=== PATIENT | female | born 1965 | race Caucasian/White ===

== ENCOUNTER 2017-04-08 08:31 | Inpatient (IN) | payer BC ==
[~2017-04-08 08:31] MED LIST: Buffered Lidocaine 0.9% SYRIN* 5 ML/SYR SYRINGE INTRADERM ONE; Dexamethasone IV* 4 MG/ML 1 ML (4 MG) IV SLOW PU ONE; Famotidine IV* 10 MG/ML 2 ML (20 mg) IV ONE; Scopolamine 1.5 mg* PATCH TRANSDERM ONE
[2017-04-08] MEDS ORDERED: Famotidine IV* 10 MG/ML 2 ML (20 mg) ONE ×2 (08:40→14:55)
[2017-04-08] MEDS ORDERED: Dexamethasone IV* 4 MG/ML 1 ML (4 MG) ONE (08:40)
[2017-04-08] MEDS ORDERED: Scopolamine 1.5 mg* PATCH ONE (08:41)
[2017-04-08] MEDS ORDERED: Ciprofloxacin 400MG IVPREMIX(* 400 MG/200 ML BAG ONE (08:41)
[2017-04-08] MEDS ORDERED: Buffered Lidocaine 0.9% SYRIN* 5 ML/SYR SYRINGE ONE (08:41)
[2017-04-08] MEDS ORDERED: Clindamycin 900 MG IVPREMIX(* 900 MG/50 ML SDV IV ONE (08:41)
[2017-04-08] MEDS ORDERED: Heparin VIAL(*) 5000 UNITS/ML VIAL (FIVE THOUSAND) ONE ×2 (08:42→14:55)
[2017-04-08] MEDS ORDERED: Bupivacaine 0.25% SDV* 30 ML ONE ×2 (09:35→10:48)
[2017-04-08] MEDS ORDERED: Midazolam* 1 MG/ML 5 ML VIAL (5 MG) ONE (09:46)
[2017-04-08] MEDS ORDERED: fentaNYL* 50 MCG/ML 2 ML VIAL (100 MCG VIAL) ONE ×2 (09:46→13:21)
[2017-04-08] MEDS ORDERED: Succinylcholine* 20 MG/ML 10 ML VIAL ONE (09:51)
[2017-04-08] MEDS ORDERED: Propofol* 10 MG/ML 20 ML BTL IV PUSH ONE (09:51)
[2017-04-08] MEDS ORDERED: Lidocaine 2% PF * 5 ML VIAL ONE (09:51)
[2017-04-08] MEDS ORDERED: Rocuronium* 10 MG/ML VIAL ONE (09:52)
[2017-04-08] MEDS ORDERED: PROCHLORPERAZINE INJ 5 MG/ML 2 ML VIAL IV PRN (09:55)
[2017-04-08] MEDS ORDERED: Morphine INJ* 2 MG/ML 1 ML CARPUJECT IV PRN (09:55)
[2017-04-08] MEDS ORDERED: Ketorolac INJ* 30 MG/ML 1 ML VIAL ONE ×2 (10:22→14:55)
[2017-04-08] MEDS ORDERED: Ondansetron INJ* 2 MG/ML VIAL ONE (10:50)
[2017-04-08] MEDS ORDERED: Phenylephrine IV* 40 MCG/ML 10 ML SYRINGE ONE (10:56)
[2017-04-08] MEDS ORDERED: Neostigmine Methylsulfate* 2 MG/2 ML SYRINGE ONE (11:53)
[2017-04-08] MEDS ORDERED: Glycopyrrolate IV* 0.2 MG/ML 1 ML VIAL ONE (11:53)
--- NOTE | 2017-04-08 12:06 | SURGPN ---
Brief Operative Note - Surgery Procedures: Procedures Pre-OP Diagnoses: Clinically severe obesity Post-op Diagnosis: same Procedure: Laparoscopic sleeve gastrectomy Surgeon: Maureen Asst: Freeman Weldon: VERA Hollingsworth EBL: minimal IVF: 2100cc LR Specimen: portion of stomach Drains: none
[2017-04-08] MEDS ORDERED: Acetaminophen ADULT LIQ* 650 MG/20.3 ML UDC PO PRN (12:07)
[2017-04-08] MEDS ORDERED: diPHENhydraMINE IV* 50 MG/ML 1 ml VIAL (BENADRYL) SLOW PUSH PRN (12:07)
[2017-04-08] MEDS ORDERED: HYDROcodone/ACET. 7.5/325 LIQ* 15 ML UDC PO PRN (12:07)
[2017-04-08] MEDS ORDERED: Ondansetron INJ* 2 MG/ML VIAL IV PRN (12:07)
[2017-04-08] MEDS ORDERED: Albuterol HFA INHALER* 8 gm MDI INH PRN (12:09)
--- NOTE | 2017-04-08 13:16 | OP ---
CC: Dr. Ronak Beckford; [facility] * DATE OF OPERATION: 04/08/2017 - ROOM #351 DATE OF : 1965. SURGEON: Dr. Ciro Reddy. RADIATION CONTROL WORKER: BETY Nazario. ANESTHESIOLOGIST: Dr. Khari Hollingsworth. ANESTHESIA: General. PRE-OP DIAGNOSIS: Clinically severe obesity, obstructive sleep apnea, hypertension. POST-OP DIAGNOSIS: Clinically severe obesity, obstructive sleep apnea, hypertension. OPERATIVE PROCEDURE: Laparoscopy sleeve gastrectomy. ESTIMATED BLOOD LOSS: Minimal. FLUIDS: 2100 cc of crystalloid fluid given. SPECIMEN: Portion of stomach. DRAINS: None. DESCRIPTION OF PROCEDURE: The patient was identified in the preoperative area. She was marked. We discussed the case again and she was aware. She met the anesthesiologist and was brought to the operating room and placed on the operating table in the supine position. Preoperative antibiotics were given. Sequential devices were placed on the bilateral lower extremities. General anesthesia was induced. The patient's abdomen was prepped and draped in the standard surgical fashion. A time-out was performed. A periumbilical incision was made. This was deepened down to the anterior fascia just left of midline and this fascia was elevated and a Veress needle was inserted into the abdominal cavity which was then allowed to insufflate to a pressure of 15 mmHg. The patient tolerated the insufflation well. Veress needle was removed and a 12 mm trocar was inserted to this site. The laparoscope was inserted through this and there was no evidence of injury from the trocar insertion. Additional trocar was then placed in the following position: Two 5 mm in the left upper quadrant. Review of the midline showed a small area of omentum attached to the anterior abdominal wall towards the umbilicus. This was taken down with a LigaSure device. This allowed us to see better into the right upper quadrant. A 12 mm trocar was inserted through this and the patient was placed in a steep reverse Trendelenburg. There were no significant adhesions at the previous open gallbladder site. Next, with the table in a steep reverse Trendelenburg, a Esau retractor was inserted through the subxiphoid incision and the liver was retracted anteriorly and to the right. This exposed the gastroesophageal fat pad which was retracted towards the right lower quadrant and blunt and sharp dissection was utilized to expose the left eulogio. It was unclear if there was some posterior fat extending into a hernia at this point. Next, we identified the pylorus and measured approximately 6 cm along the greater curvature. A retrogastric window was made into the lesser sac at this site and the vasculature to the greater curvature was taken with the LigaSure device right up to the angle of His. The fat pad was again gently dissected with both electrocautery and blunt dissection to free this more medially. Posterior attachments were similarly taken with the LigaSure device until the stomach could be completely rotated. I did not appreciate a significant hiatal hernia, but next we opened up the pars flaccida and identified the right eulogio. There was no dimpling at this site to suggest herniation. Next, our attention was turned towards the incisura. We upsized the 12 mm trocar at the right upper quadrant to a 15 to allow for a 60 mm black loaded JENNY stapler with reinforcement strips to be placed along the greater curvature and extending this towards the incisura. Prior to making this cut, we placed a 40 Hungarian bougie through the mouth and into the distal stomach. Staying close to the bougie, additional 60 mm purple JENNY stapling devices were fired until we did a full transsection of the stomach. Hemostasis was excellent. The Esau retractor was removed. The bougie was removed. The staple line lay flat without any twisting or corkscrewing. Again hemostasis was excellent. The stomach was placed in the endoscopic retrieval bag and brought out through the right upper quadrant port site with ease. This port site was reapproximated at the fascial layer with 0 Polysorb suture using an Endo Close device. The abdomen was allowed to collapse and all trocars were removed, including the Esau retractor. With the abdomen collapsed, the five skin incisions were reapproximated with skin everardo followed by sterile dressing. The patient tolerated the procedure well, was woken up in the OR, and transferred to the PACU in stable condition. [id number]/[facility] #: [id number] ELIZABETH
[2017-04-08] MEDS: fentaNYL* 50 MCG/ML 2 ML VIAL (100 MCG VIAL) IV PRN ×2 (13:22→13:59)
[2017-04-08] MEDS: Ketorolac INJ* 30 MG/ML 1 ML VIAL IV PRN ×2 (15:10→21:49)
[2017-04-08] MEDS: Heparin VIAL(*) 5000 UNITS/ML VIAL (FIVE THOUSAND) SUBCUT SCH ×2 (15:11→21:48)
[2017-04-08] MEDS: Famotidine IV* 10 MG/ML 2 ML (20 mg) IV SLOW PU SCH (15:11)
[2017-04-08] MEDS: HYDROmorphone* 1 MG/ML 1 ML CARPUJECT IV PRN (17:48)
[2017-04-08] MEDS: Mometasone/Formoter 200/5 MDI INH SCH (20:35)
[2017-04-09] MEDS: Famotidine IV* 10 MG/ML 2 ML (20 mg) IV SLOW PU SCH ×2 (03:47→15:39)
[2017-04-09] MEDS: Heparin VIAL(*) 5000 UNITS/ML VIAL (FIVE THOUSAND) SUBCUT SCH ×2 (06:00→13:37)
[2017-04-09] MEDS: Ketorolac INJ* 30 MG/ML 1 ML VIAL IV PRN (06:17)
[2017-04-09] MEDS: Mometasone/Formoter 200/5 MDI INH SCH (08:48)
[2017-04-09] MEDS ORDERED: Influenza VAC *QUAD* 2017-18* 0.5 ML SYRINGE IM ONE (09:00)
--- NOTE | 2017-04-09 09:18 | RAD ---
HISTORY: Status post sleeve gastrectomy COMPARISONS: October 29, 2016 TECHNIQUE: A single contrast fluoroscopic study was performed of the esophagus and upper GI tract. Water-soluble liquid contrast was administered under fluoroscopic observation. Multiple digital spot images were obtained Total fluoroscopy time is 0.8. FINDINGS: ESOPHAGUS: The esophagus is normal in contour, course, and caliber. There is no stricture or web. Contrast passes easily through the gastroesophageal junction into the stomach. There is presbyesophagus with tertiary nonpropulsive contractions. STOMACH: The patient is status post sleeve gastrectomy. Contrast passes easily through the gastric remnant into the duodenum. There is spontaneous gastroesophageal reflux. DUODENUM: The visualized duodenum is unremarkable. IMPRESSION: 1. STATUS POST SLEEVE GASTRECTOMY WITHOUT OBSTRUCTION OR EXTRAVASATION. 2. GASTROESOPHAGEAL REFLUX CPT II Codes: 6045F
--- NOTE | 2017-04-09 09:48 | PN ---
Progress Note - Progress Note Date of Service: 04/09/17 Note: S: POD #1. Doing well. No specific problems reported. Feels "bruised". No N/V or regurgitation. O: Vital Signs - 8 hr 04/09/17 04/09/17 04/09/17 02:00 03:24 04:00 Temperature 98.0 F Pulse Rate 94 Respiratory 16 16 16 Rate Blood Pressure 119/53 (mmHg) O2 Sat by Pulse 95 94 94 Oximetry 04/09/17 06:00 Temperature Pulse Rate Respiratory 16 Rate Blood Pressure (mmHg) O2 Sat by Pulse 96 Oximetry Intake and Output Last 24 Hours 04/07/17 04/08/17 04/09/17 04/10/17 06:59 06:59 06:59 06:59 Intake Total 4359 Output Total 3550 250 Balance 809 -250 Weight 245 lb Intake: IV Fluids 4359 CLINDAMYCIN 900MG 50 D5W 200ML, Cipro 400mg 200 LR 4001 PB - FAMOTIDINE 108 Oral 0 Output: Urine 3550 250 Other: Estimated Void Medium # Bowel Movements 0 Estimated Blood Loss MIN Comment Gen: appears comfortable Heart: reg Lungs: clear Abd: +BS, sl hypoactive; incisions ok; small amts of drainage on dsgs; soft; min tenderness to palp UGI: normal; small amt reflux A/P: s/p sleeve gastrectomy, doing well; start maggi clears; poss d/c home later today
[2017-04-09] MEDS: HYDROmorphone* 1 MG/ML 1 ML CARPUJECT IV PRN (10:34)
[2017-04-09 10:59] LABS: Hematocrit 42 % (35-47); Hemoglobin 13.9 g/dl (12.0-16.0); Mean Corpuscular HGB Conc 33 g/dl (31-36); Mean Corpuscular Hemoglobin 28 pg (27-31); Mean Corpuscular Volume 85 fL (80-97); Mean Platelet Volume 8 um3 (7.4-10.4); Red Blood Count 4.96 10^6/ul (4.0-5.4); Red Cell Distribution Width 15 % (10.5-15); White Blood Count 13.4 10^3/ul (3.5-10.8)
[2017-04-09] MEDS ORDERED: D5W 1/2 NS KCl 20 Meq 1000 ML* 1,000 ML IV SCH (12:07)
[2017-04-09] MEDS ORDERED: Sertraline* 100 MG TAB PO SCH (13:00)
[2017-04-09 15:39] VITALS: BP 100/48
--- NOTE | 2017-04-10 05:31 | DS ---
CC: [facility] * DISCHARGE SUMMARY: DATE OF ADMISSION: 04/08/17 DATE OF DISCHARGE: 04/09/17 ATTENDING SURGEON: Dr. Ciro Reddy * (DICTATED BY BETY MARSHALL) HOSPITAL COURSE: Please refer to admission history and physical for admission details. The patient was taken to the operating on 04/08/17 at which time she underwent laparoscopic sleeve gastrectomy with Dr. Reddy. She has had an otherwise uneventful postoperative course with a normal upper GI study on the morning of postop day #1. She has been able to take bariatric liquids without difficulty and her pain has been well controlled. PHYSICAL EXAMINATION: Vital signs on the morning of discharge, temperature 98.3 , blood pressure 100/48, pulse 80, respirations 20, room air saturation 95%. Heart: Regular rate and rhythm. Lungs: Clear to auscultation. Abdomen: Laparoscopic port sites with small amounts of drainage under the dressings, which were left in place. Abdomen otherwise soft and nontender. Bowel sounds present and normal. IMPRESSION: Status post laparoscopic sleeve gastrectomy, doing well. PLAN: Home today. She will resume her usual medications with the exception that she will hold her hydrochlorothiazide. She was instructed that she may use over- the-counter Tylenol and/or ibuprofen p.r.n. for lgbo-yy-fmekhnyd pain. She has prescription for hydrocodone/APAP liquid for stronger pain. She has an appointment scheduled for 04/14/17 for followup at the [facility] for metabolic and bariatric surgery. Discharge instructions were reviewed in person and in written form. BETY MARSHALL [id number]/[facility] #: [id number] MTDD
[2017-04-11] MEDS ORDERED: Scopolomine PATCH Remove* 1 NOTE MISC PATCH OFF ONE (06:00)
== END 2017-04-09 16:15 | disposition home or self-care (01) | DRG 403 ==
LOC: AA 08:31 → SSU 14:34
PROVIDERS: ADMIT Surgery; ATTEND Surgery
PROC: 0DB64Z3 Excision of Stomach, Percutaneous Endoscopic Approach, Vertical (ICD-10-PCS; principal; 2017-04-08 10:00)
DX: E66.01 Morbid (severe) obesity due to excess calories (principal); I10 Essential (primary) hypertension; Z88.0 Allergy status to penicillin; G47.33 Obstructive sleep apnea (adult) (pediatric); F41.9 Anxiety disorder, unspecified; F32.9 Major depressive disorder, single episode, unspecified; K21.9 Gastro-esophageal reflux disease without esophagitis; J44.9 Chronic obstructive pulmonary disease, unspecified; Z90.49 Acquired absence of other specified parts of digestive tract; Z98.51 Tubal ligation status; Z90.710 Acquired absence of both cervix and uterus; Z90.721 Acquired absence of ovaries, unilateral; Z83.3 Family history of diabetes mellitus; Z82.49 Family history of ischemic heart disease and other diseases of the circulatory system; Z80.9 Family history of malignant neoplasm, unspecified; Z81.8 Family history of other mental and behavioral disorders; Z83.49 Family history of other endocrine, nutritional and metabolic diseases; M79.7 Fibromyalgia; Z68.42 Body mass index [BMI] 45.0-49.9, adult
CPT/HCPCS: 36415; 43775; 74246; 85025; 88307; 90686; 94640; A9270-GY; J0330; J0744; J1100; J1170; J1644; J1885; J2250; J2405; J2704; J3010

== ENCOUNTER 2017-09-09 07:47 | Inpatient (IN) | payer BC ==
--- NOTE | 2017-09-09 08:41 | RAD ---
INDICATION: Shortness of breath and cough. COMPARISON: Comparison is made with a prior study from February 27, 2016. TECHNIQUE: Dual-energy PA and lateral views of the chest were obtained. FINDINGS: Cardiac and mediastinal contours appear normal. There are relatively dense infiltrates present in the mid and lower right lung field and at the left lung base most consistent with pneumonia. No pleural effusion is seen. IMPRESSION: BILATERAL INFILTRATES MOST CONSISTENT WITH PNEUMONIA. RECOMMEND FOLLOW-UP CHEST X-RAYS TO RESOLUTION.
[2017-09-09 08:56] LABS: Hematocrit 38 % (35-47); Hemoglobin 12.5 g/dl (12.0-16.0); Mean Corpuscular HGB Conc 33 g/dl (31-36); Mean Corpuscular Hemoglobin 29 pg (27-31); Mean Corpuscular Volume 87 fL (80-97); Mean Platelet Volume 8 um3 (7.4-10.4); Platelet Count 504 10^3/ul (150-450); Red Cell Distribution Width 15 % (10.5-15)
[2017-09-09 09:16] LABS: EGFR Non-African American 94.4 (>60)
[2017-09-09] MEDS ORDERED: Albuterol/Ipratropium NEB.SOL* Albuterol 2.5 MG/Ipratropium 0.5 MG 3 ML INH ONE (09:44)
[2017-09-09] MEDS ORDERED: methylPREDNISolone 125 MG* 2 ML VIAL IV ONE (09:46)
[2017-09-09] MEDS ORDERED: Levofloxacin 750 MG IVPREMIX(* 750 MG/150 ML BAG IVPB ONE (09:49)
[2017-09-09 09:59] LABS: Urine Appearance Clear; Urine Blood Negative (Negative); Urine Color Amber; Urine Ketones Trace (Negative); Urine Protein Negative (Negative); Urine Specific Gravity 1.024 (1.010-1.030); Urine Urobilinogen Positive (Negative)
[2017-09-09 10:05] LABS: ABS Basophils 0.1 10^3/ul (0-0.2); ABS Eosinophils 0.1 10^3/ul (0-0.6); ABS Lymphocytes 1.8 10^3/ul (1.0-4.8); ABS Monocytes 1.4 10^3/ul (0-0.8); ABS Neutrophils 36.6 10^3/ul (1.5-7.7); ABS Nucleated RBC 0 10^3/ul; Eosinophil % 0.2 % (0-6); Lymphocyte % 4.4 % (25-47); Nucleated Red Blood Cells % 0
[2017-09-09] MEDS ORDERED: NS 0.9% 1000 ML* 2,000 ML IV ONE (11:15)
[2017-09-09] MEDS ORDERED: Acetaminophen TAB* 325 MG PO PRN (11:18)
[2017-09-09] MEDS ORDERED: Ondansetron INJ* 2 MG/ML VIAL IV PRN (11:18)
[2017-09-09] MEDS ORDERED: Albuterol HFA INHALER* 8 gm MDI INH PRN (11:22)
[2017-09-09] MEDS ORDERED: NS 0.9% 1000 ML* 1,000 ML IV SCH ×2 (11:30→19:00)
[2017-09-09] MEDS ORDERED: Ondansetron INJ* 2 MG/ML VIAL ONE (11:41)
[2017-09-09] MEDS: Morphine INJ* 2 MG/ML 1 ML CARPUJECT IV PRN (11:44)
[2017-09-09] MEDS ORDERED: Vancomycin(*) 1,500 MG in NS 0.9% 250 ML* 250 ML IVPB ONE (12:00)
[2017-09-09] MEDS: NS 0.9% 1000 ML* 1,000 ML IV SCH ×2 (14:34→17:00)
[2017-09-09] MEDS: Enoxaparin(*) 40 MG/0.4 ML SYR SUBCUT SCH (14:37)
[2017-09-09] MEDS: Ibuprofen TAB* 600 MG PO PRN (17:40)
[2017-09-09] MEDS ORDERED: Vancomycin per Pharmacy* NOTE FOLLOW UP PRN (17:53)
--- NOTE | 2017-09-09 18:31 | ED ---
Brian Armando Angela, scribed for Bartolo Marcelo MD on 09/09/17 at 0804 . Respiratory - HPI Summary HPI Summary: This pt is a 51 y/o female presenting to [facility] c/o persistent cough and increased SOB. Pt reports she went to [address] [place] [address] Urgent Care on August 30 and went to her PCP on the , , and . She was given albuterol for her SOB. Pt was told she needed to schedule an XR to rule out pneumonia. Additionally pt reports fever in the morning ranging from 99 to 102 F. Her cough is productive with blood tinged sputum. PMHx: COPD. Pt is currently on Advair BID. - History of Current Complaint Chief Complaint: EDShortnessOfBreath Stated Complaint: SHORT OF BREATH Time Seen by Provider: 09/09/17 07:57 Hx Obtained From: Patient Onset/Duration: Lasting Days, Still Present Timing: Constant Pain Intensity: 10 Character: Cough (Productive) Sputum Amount: Moderate Sputum Color: [place]-Tinged Aggravating Factor(s): Nothing Alleviating Factor(s): Nothing Associated Signs and Symptoms: Fever, SOB - Allergy/Home Medications Allergies/Adverse Reactions: Allergies Allergy/AdvReac Type Severity Reaction Status Date / Time Penicillins Allergy Swelling Verified 09/09/17 12:23 Of Face,Lips,& Throat Home Medications: Home Medications Albuterol HFA INHALER* [Ventolin HFA Inhaler*] 2 puff INH Q4H PRN 09/09/17 [ History Confirmed 09/09/17] Albuterol/Ipratropium NEB.OLI* [Duoneb (Albuterol 2.5 MG/Ipratropium 0.5 MG)] 1 neb INH Q6H PRN 09/09/17 [History Confirmed 09/09/17] Biotin 1 mg PO DAILY 09/09/17 [History Confirmed 09/09/17] Cholecalciferol TAB* [Vitamin D TAB*] 1,000 unit PO DAILY 09/09/17 [History Confirmed 09/09/17] Cyanocobalamin TAB* [Vitamin B12 TAB*] 500 mcg PO DAILY 09/09/17 [History Confirmed 09/09/17] Iron 27 mg PO DAILY 09/09/17 [History Confirmed 09/09/17] Levofloxacin TAB* [Levaquin TAB*] 750 mg PO DAILY 09/09/17 [History Confirmed ] Omeprazole CAP* [Prilosec CAP* 20 MG] 20 mg PO DAILY 09/09/17 [History Confirmed 09/09/17] Sertraline* [Zoloft*] 100 mg PO BID 09/09/17 [History Confirmed 09/09/17] predniSONE TAB* [Deltasone TAB*] 20 mg PO DAILY 09/09/17 [History Confirmed ] PMH/Surg Hx/FS Hx/Imm Hx Endocrine/Hematology History: Denies: Hx Bone Marrow Disease, Hx Sickle Cell Disease, Hx Anemia Cardiovascular History: Reports: Hx Hypertension - CONTROL WITH MEDS Respiratory History: Reports: Hx Asthma - INHALER, Hx Chronic Obstructive Pulmonary Disease (COPD), Hx Sleep Apnea, Other Respiratory Problems/Disorders - HX OF WHEEZING AND TROUBLE BREATHING GI History: Reports: Hx Hiatal Hernia, Hx Irritable Bowel Musculoskeletal History: Reports: Hx Tendonitis - BILATERAL ELBOWS, Other Musculoskeletal History - frequent have systems of fibromyalgia - not yet diagnosed Sensory History: Reports: Hx Contacts or Glasses - GLASSES Denies: Hx Cataracts, Hx Hearing Aid Opthamlomology History: Reports: Hx Contacts or Glasses - GLASSES Denies: Hx Cataracts Psychiatric History: Reports: Hx Anxiety - OCCASIONAL, Hx Depression - Cancer History Hx Chemotherapy: No - Surgical History Surgery Procedure, Year, and Place: 1984 WISDOM TEETH EXTRACTION,. 1984 [place] [facility] [place] , [facility]. 1994 BILATERAL TUBAL LIGATION, [facility]. 2003 HYSTERE[place]Y WITH [place] S & O[place] [facility] [place] 2011 [place]MBILICAL H[place]PA[place] [facility] [place] 2013 BILATERAL CARPAL T[place]NEL RE[place] [facility] [place]x Anesthesia Reactions: Yes - N/V Infectious Disease History: No Infectious Disease History: Denies: Traveled Outside the [place] in Last 30 Days - Family History Known Family History: Positive: Cardiac Disease, Hypertension, Diabetes - mother , Other - Lung cancer father - Social History Alcohol Use: Occasionally Alcohol Amount: 1 DRINK/DAY Substance Use Type: Reports: None Smoking Status (MU): Former Smoker Type: Cigarettes Amount Used/How Often: 1 1/2 PPD Length of Time of Smoking/Using Tobacco: 20 YEARS, quit 2005 Have You Smoked in the Last Year: No Review of Systems Positive: Fever Eyes: Negative ENT: Negative Positive: Shortness Of Breath, Cough Skin: Negative Neurological: Negative All Other Systems Reviewed And Are Negative: Yes Physical Exam - Summary Physical Exam Summary: VITAL SIGNS: Reviewed. GENERAL: Patient is a well-developed and nourished female who is lying comfortable in the stretcher. Patient is not in any acute respiratory distress. HEAD AND FACE: No signs of trauma. No ecchymosis, hematomas or skull depressions. No sinus tenderness. Pt has nasal congestion and runny nose. EYES: PERRLA, EOMI x 2, No injected conjunctiva, no nystagmus. EARS: Hearing grossly intact. Ear canals and tympanic membranes are within normal limits. MOUTH: Oropharynx within normal limits. NECK: Supple, trachea is midline, no adenopathy, no JVD, no carotid bruit, no c- spine tenderness, neck with full ROM. CHEST: Symmetric, no tenderness at palpation LUNGS: Clear to auscultation bilaterally. No wheezing or crackles. CVS: Regular rate and rhythm, S1 and S2 present, no murmurs or gallops appreciated. ABDOMEN: Soft, non-tender. No signs of distention. No rebound no guarding, and no masses palpated. Bowel sounds are normal. EXTREMITIES: FROM in all major joints, no edema, no cyanosis or clubbing. NEURO: Alert and oriented x 3. No acute neurological deficits. Speech is normal and follows commands. SKIN: Dry and warm Triage Information Reviewed: Yes Vital Signs On Initial Exam: Initial Vitals Temp Pulse Resp BP Pulse Ox 98.2 F 118 22 122/63 92 09/09/17 07:48 09/09/17 07:48 09/09/17 07:48 09/09/17 07:48 09/09/17 07:48 Vital Signs Reviewed: Yes Diagnostics - Vital Signs Vital Signs Temp Pulse Resp BP Pulse Ox 09/09/17 07:48 98.2 F 118 22 122/63 92 - Laboratory Result Diagrams: 09/09/17 08:35 09/09/17 08:35 Lab Statement: Any lab studies that have been ordered have been reviewed, and results considered in the medical decision making process. - Radiology Chest XR Xray Interpretation: Positive (See Comments) - IMPRESSION: Bilateral infiltrates most consistent with pneumonia. Recommend follow-up chest x-rays to resolution. Dr. Marcelo has reviewed this radiology report. Radiology Interpretation Completed By: Radiologist - EKG 08:50 Cardiac Rate: Tachycardia EKG Rhythm: Sinus Tachycardia - at 110 bpm EKG Interpretation: No ST elevation. Normal axis. Disposition - Course Assessment/Plan: This pt is a 51 y/o female presenting to [facility] c/o persistent cough and increased SOB. Pt reports she went to [address] [place] [address] Urgent Care on August 30 and went to her PCP on the , , and . She was given albuterol for her SOB. Pt was told she needed to schedule an XR to rule out pneumonia. Additionally pt reports fever in the morning ranging from 99 to 102 F. Her cough is productive with blood tinged sputum. PMHx: COPD. Pt is currently on Advair BID. Test results show WBC of 40, potassium of 3.4, for which the pt was given potassium chloride, troponin of 0.04, CRP of 399. Influenza A and B is negative. Chest XR: Bilateral infiltrates most consistent with pneumonia. Recommend follow-up chest x-rays to resolution. In the ED course the pt was given IV fluids, Rocephin, and azithromycin for the pneumonia. The pt was also given duoneb and solu-Medrol for the COPD exacerbation. I discussed the pts case with Dr. Francisco, hospitalist, who accepted the pt for admission. Pt is hemodynamically stable, alert and oriented x3. - Diagnoses Provider Diagnoses: COPD exacerbation, Pneumonia - Physician Notifications Discussed Care Of Patient With: Rigoberto Francisco Time Discussed With Above Provider: 10:10 Instructed by Provider To: Other - I discussed pt care with Dr. Francisco, hospitalist, who has accepted the pt for admission. Discharge - Discharge Plan Condition: Stable Disposition: ADMITTED TO [facility] documentation as recorded by the Brian becerra Angela accurately reflects the service I personally performed and the decisions made by , Bartolo Marcelo MD.
[2017-09-09] MEDS: Mometasone/Formoter 200/5 MDI INH SCH (19:42)
--- NOTE | 2017-09-09 19:50 | HP ---
ADMISSION HISTORY AND PHYSICAL: DATE OF ADMISSION: 09/09/17 PRIMARY CARE PROVIDER: Dr. Yifan Parisi. HEALTHCARE PROXY: Her friend, Darrick. CODE STATUS: Full. SOURCE OF INFORMATION: History was obtained from interview with the patient and [place]. RELIABILITY: Fair. CHIEF COMPLAINT: Shortness of breath. HISTORY OF PRESENT ILLNESS: This 51-year-old female had been feeling herself until approximately two weeks prior when she first started to develop cough and fever. She started to feel better; however, then started to feel worse again, developed shortness of breath. She went to [facility] on 08/30/17 and was told she had bronchitis and prescribed azithromycin as well as prednisone. She has followed up with her doctor on , Thursday and Thursday, which was two days prior to this presentation, for continued cough, and feeling fatigued, and her prednisone was continued and she was started on Levaquin 2 days prior to this presentation. She had been on 20 mg of prednisone, decreased to 10 mg because it made her feel jittery. Her max fever had been measured at 109, although she was not consistent with measuring. She had been scheduled for a chest x-ray; however, did not feel well enough to proceed to get a chest x-ray and proceeded to the ED because she had not been improving. She notes that her friend Darrick whom she lives with had been sick with confirmed flu prior to her falling ill as well. She denies any nausea or vomiting. She had 1 episode of diarrhea this morning. She had noticed increasing shortness of breath and pain in both shoulders. She notes she has pain all over generally because she has fibromyalgia symptoms, although has never been tested formally. The pain is not pleuritic and is better with Motrin. She endorses headache. She feels her breathing is labored. Otherwise, she has no complaints. PAST MEDICAL HISTORY: Includes: 1. Hypertension controlled after a laparoscopic gastric sleeve performed in March 2017. 2. Obesity. 3. Obstructive sleep apnea, does not use CPAP. 4. GERD. 5. COPD. 6. Cholecystectomy. 7. . 8. Tubal ligation. 9. Total hysterectomy. 10. Umbilical hernia repair 11. Laparoscopic gastric sleeve placement in March 2017. MEDICATIONS: Reviewed. 1. Albuterol and ipratropium nebulizers every 6 hours as needed. 2. Albuterol inhaler 2 puffs every 4 hours as needed. 3. Prednisone 20 mg daily, decreased to 10 mg daily for the last 2 weeks. 4. Levaquin 750 mg daily for the last 2 to 3 days. 5. Iron 27 mg daily. 6. Vitamin B12 500 mcg daily. 7. Vitamin D 1000 units daily. 8. Omeprazole 20 mg daily. 9. Advair 250/50 mcg 1 inhaled twice daily. 10. Biotin 1 daily. 11. Zoloft 100 mg twice daily. ALLERGIES: PENICILLIN causes swelling. FAMILY HISTORY: Diabetes, hypertension, CAD. 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 Quit tobacco 12 years prior; smoked 25 years, one pack per day. Occasional drink, none since the surgery. REVIEW OF SYSTEMS: As per HPI, otherwise all other systems negative. PHYSICAL EXAMINATION GENERAL: Lying in 30 degrees in bed, appears in pain, tachypneic, although talking in full sentences, not using accessory muscles of respiration, in no apparent distress. VITAL SIGNS: In the emergency room 179/58, heart rate ranging from 60 to 150, respiratory rate is 26. T-max is 99 degrees, not yet recorded in the computer, performed while this author was there. HEENT: Oropharynx is clear. Dry mucous membranes. Sclerae anicteric. NECK: Non-elevated JVD. No cervical or supraclavicular lymphadenopathy. LUNGS: Had diffuse rales throughout. HEART: Tachycardic heart rate with regular rhythm. No murmurs, rubs or gallops. ABDOMEN: Soft, nontender, nondistended. EXTREMITIES: Warm and well perfused without clubbing, cyanosis or edema. She has less than 2 seconds cap refill. She has 2+ radial pulses. NEUROLOGIC: She has no apparent anxiety, agitation or depression. Cranial nerves II through XII are intact. LABORATORY DATA/DIAGNOSTIC STUDIES: Labs were reviewed. White blood cell count is 40 which is 91.7% neutrophils with 36.6 absolute neutrophil count, hemoglobin 12.5, platelets 504,000. Lactic acid is 1.3. Troponin-I is 0.04. CRP is 399. Influenza A and B are negative. Data reviewed. Chest x-ray; bilateral lung infiltrates most consistent with pneumonia. Recommend followup. Chest x-ray resolution. EKG : Sinus tachycardia, ventricular rate 110, normal limit axis and intervals. Normal R-wave progression. No ST or T-wave changes. ASSESSMENT AND PLAN: This is a 51-year-old female, 2 weeks of illness developing after housemate was diagnosed with flu, now presenting with bilateral pneumonia, fever, tachycardia, and tachypnea. I am concerned for super infection after her influenza illness. Hypoxic respiratory failure: In the setting of pneumonia. Has recently been on Levaquin, antibiotic but only for 2 days. PENICILLIN allergy sounds legitimate with swelling and difficulty breathing. I am hesitant to give her cefepime or Zosyn. I am adding vancomycin to Levaquin. We can expand gram- negative coverage and anaerobic coverage if she fails to improve. I think she is outside the window for any Tamiflu therapy. Check Strep pneumoniae and Legionella urine antigens. Bolusing 2 L fluid now. Follow up with 2 additional liters at 200 cc per hour. Add second IV for access. Obstructive sleep apnea. Higher risk for hypoxia, does not use CPAP, will employ if needed. Chronic obstructive pulmonary disease. Continue home inhalers. Concern for fibromyalgia as well as pain with pneumonia. Morphine as needed, as well as Tylenol. Elevated troponins, suspect in the setting of demand with heart rate 150. The patient has no chest pain and has a clear pneumonia. We will not continue to trend. EKG is within normal limits. DVT prophylaxis, enoxaparin. [id number]/[facility] #: [id number] [facility]
[2017-09-09] MEDS: Sertraline* 100 MG TAB PO SCH (21:02)
[2017-09-09] MEDS: Vancomycin(*) 1,000 MG in NS 0.9% 250 ML* 250 ML IVPB SCH (23:55)
[2017-09-10 06:19] LABS: Hematocrit 34 % (35-47); Mean Corpuscular HGB Conc 33 g/dl (31-36); Mean Corpuscular Hemoglobin 29 pg (27-31); Mean Corpuscular Volume 88 fL (80-97); Mean Platelet Volume 8 um3 (7.4-10.4); Platelet Count 517 10^3/ul (150-450); Red Blood Count 3.84 10^6/ul (4.0-5.4); Red Cell Distribution Width 15 % (10.5-15)
[2017-09-10] MEDS: Ibuprofen TAB* 600 MG PO PRN ×2 (06:22→18:20)
[2017-09-10 06:37] LABS: EGFR Non-African American 127.1 (>60)
[2017-09-10 06:59] LABS: ABS Basophils 0 10^3/ul (0-0.2); ABS Eosinophils 0 10^3/ul (0-0.6); ABS Lymphocytes 1.6 10^3/ul (1.0-4.8); ABS Neutrophils 36.3 10^3/ul (1.5-7.7); ABS Nucleated RBC 0 10^3/ul; Eosinophil % 0.1 % (0-6); Nucleated Red Blood Cells % 0
[2017-09-10] MEDS: NS 0.9% 1000 ML* 1,000 ML IV SCH ×2 (07:19→14:18)
[2017-09-10] MEDS: IRON 27 MG PO SCH (08:23)
[2017-09-10] MEDS: Mometasone/Formoter 200/5 MDI INH SCH ×2 (08:23→20:21)
[2017-09-10] MEDS: BIOTIN 1 MG PO SCH (08:23)
[2017-09-10] MEDS: Cyanocobalamin TAB* 500 MCG PO SCH (08:33)
[2017-09-10] MEDS: Omeprazole CAP* 20 MG PO SCH (08:33)
[2017-09-10] MEDS: Sertraline* 100 MG TAB PO SCH ×2 (08:33→20:44)
[2017-09-10] MEDS: Cholecalciferol TAB* 1000 UNITS PO SCH (08:33)
[2017-09-10] MEDS: Vancomycin(*) 1,000 MG in NS 0.9% 250 ML* 250 ML IVPB SCH ×2 (08:33→16:38)
[2017-09-10] MEDS: predniSONE TAB* 20 MG PO SCH (08:33)
--- NOTE | 2017-09-10 11:30 | PN ---
Subjective Date of Service: 09/10/17 Interval History: Feels much better cough continues, non productive Wants to shower appetite good pain over shoulder improved but worse when coughing Objective Active Medications: Acetaminophen (Tylenol Tab*) 650 mg PO Q4H PRN PRN Reason: FEVER/PAIN Albuterol (Ventolin Hfa Inhaler*) 2 puff INH Q4H PRN PRN Reason: SOB/WHEEZING Albuterol/Ipratropium (Duoneb (Albuterol 2.5 Mg/Ipratropium 0.5 Mg)) 1 neb INH Q6H PRN PRN Reason: SOB/WHEEZING Cholecalciferol (Vitamin D Tab*) 1,000 units PO DAILY [facility] Last Admin: 09/10/17 08:33 Dose: 1,000 units Cyanocobalamin (Vitamin B12 Tab*) 500 mcg PO DAILY [facility] Last Admin: 09/10/17 08:33 Dose: 500 mcg Enoxaparin Sodium (Lovenox(*)) 40 mg SUBCUT Q24H [facility] Last Admin: 09/09/17 14:37 Dose: 40 mg Vancomycin HCl 1,000 mg/ (Sodium Chloride) 250 mls @ 166.667 mls/hr IVPB Q8H [facility] Last Admin: 09/10/17 08:33 Dose: 166.667 mls/hr Sodium Chloride (Ns 0.9% 1000 Ml*) 1,000 mls @ 100 mls/hr IV PER RATE [facility] Sodium Chloride (Ns 0.9% 1000 Ml*) 1,000 mls @ 250 mls/hr IV PER RATE [facility] Stop: 09/11/17 10:59 Last Admin: 09/10/17 07:19 Dose: 250 mls/hr Ibuprofen (Motrin Tab*) 600 mg PO Q6H PRN PRN Reason: PAIN Last Admin: 09/10/17 06:22 Dose: 600 mg Mometasone Furoate/Formoterol Fumar (Dulera 200/5 Mdi*) 2 puff INH BID [facility] Last Admin: 09/10/17 08:23 Dose: 2 puff Morphine Sulfate (Morphine Inj (Syringe)*) 2 mg IV Q4H PRN PRN Reason: PAIN Last Admin: 09/09/17 11:44 Dose: 2 mg Nf:Non Formulary Med * (Biotin [Biotin] 1 Mg) 1 mg PO DAILY [facility] Last Admin: 09/10/17 08:23 Dose: Not Given Nf:Non Formulary Med * (Iron [Iron] 27 Mg ) 27 mg PO DAILY [facility] Last Admin: 09/10/17 08:23 Dose: Not Given Omeprazole (Prilosec Cap*) 20 mg PO DAILY [facility] Last Admin: 09/10/17 08:33 Dose: 20 mg Ondansetron HCl (Zofran Inj*) 4 mg IV Q4H PRN PRN Reason: NAUSEA/VOMITING Last Admin: 09/09/17 11:44 Dose: 4 mg Pharmacy Consult (Vancomycin Per Pharmacy*) 1 note FOLLOW UP . PRN PRN Reason: PER PROTOCOL Pharmacy Profile Note (Vancomycin Trough Check) 1 note FOLLOW UP 1600 ONE Stop: 09/10/17 16:01 Prednisone (Deltasone Tab*) 20 mg PO DAILY [facility] Last Admin: 09/10/17 08:33 Dose: 20 mg Sertraline HCl (Zoloft*) 100 mg PO BID [facility] Last Admin: 09/10/17 08:33 Dose: 100 mg Trimethoprim/Sulfamethoxazole (Bactrim Ds 800/160 Tab*) 1 tab PO BID [facility] Vital Signs - 8 hr 09/10/17 09/10/17 09/10/17 07:22 08:00 10:59 Temperature 97.7 F 97.9 F Pulse Rate 102 102 Respiratory 16 20 20 Rate Blood Pressure 135/71 129/65 (mmHg) O2 Sat by Pulse 95 92 Oximetry Oxygen Devices in Use Now: Nasal Cannula Appearance: sitting up, NAD Eyes: No Scleral Icterus, PERRLA Ears/Nose/Mouth/Throat: Mucous Membranes Moist Neck: NL Appearance and Movements; NL JVP, Trachea Midline Respiratory: Symmetrical Chest Expansion and Respiratory Effort, - - rales present upper lobe on right Cardiovascular: - - tachy, no mrg Lymphatic: No Cervical Adenopathy Extremities: No Edema Skin: No Rash or Ulcers Neurological: Alert and Oriented x 3 Result Diagrams: 09/10/17 06:04 09/10/17 06:04 Microbiology and Other Data: Microbiology 09/09/17 11:24 Legionella Urinary Antigen - Final Urine Negative Legionella Streptococcus pneumoniae Ag Screen - Final Negative S. pneumo Antigen Assess/Plan/Problems-Billing Assessment: 51 yo F p/w sepsis 2/2 PNA - Patient Problems (1) Pneumonia Comment: HR improved 2 liters at 200cc/hr started this AM. Additional fluid based on HR response Gram + filamentous beading rods in sputum. c/s ID for additional assistance. ? Nocardia Will start bactrim in the interum based on leukocytsosis (2) Sepsis Comment: PNA Levaquin and vanco - keeping vanco gievn failure of levaquin as outpatient ( although was started late in the course) Added bactrim today ID for assistance (3) COPD (chronic obstructive pulmonary disease) Comment: not in exacerbation c/w home inhalers (4) CHERELLE (obstructive sleep apnea) Comment: does not use CPAP (5) DVT prophylaxis Comment: lovenox
[2017-09-10] MEDS: Enoxaparin(*) 40 MG/0.4 ML SYR SUBCUT SCH (11:53)
[2017-09-10] MEDS ORDERED: Vancomycin Trough Check NOTE FOLLOW UP ONE (16:00)
[2017-09-10] MEDS: Sulfamethox/Trimethoprim DS 800/160* TAB PO SCH (20:44)
[2017-09-11] MEDS: Vancomycin(*) 1,000 MG in NS 0.9% 250 ML* 250 ML IVPB SCH ×3 (00:09→16:39)
[2017-09-11] MEDS: Morphine INJ* 2 MG/ML 1 ML CARPUJECT IV PRN (01:54)
[2017-09-11] MEDS: Albuterol/Ipratropium NEB.SOL* Albuterol 2.5 MG/Ipratropium 0.5 MG 3 ML INH PRN ×2 (04:03→16:16)
[2017-09-11] MEDS ORDERED: Morphine INJ* 2 MG/ML 1 ML SYRINGE (TWO MG - NEW SYRINGE VERSION) IV ONE (05:19)
[2017-09-11] MEDS ORDERED: Furosemide IV* 10 MG/ML 2 ML VIAL (20 MG) IV ONE (05:56)
--- NOTE | 2017-09-11 05:59 | PN ---
Progress Note - Progress Note Date of Service: 09/11/17 Note: Paged for increase work of breathing and hypoxia - patient now on 6L states she becomes extremely SOB anytime she moves. Rhonchorous breath sounds most pronounced on right side with shallow respirations. May benefit from lasix - 20 mg IV ordered. CXR shows worsening congestion/opacities. Will check labs and urine pneumoccal and legionella antigen. May need further imaging.
[2017-09-11] MEDS ORDERED: Morphine INJ* 2 MG/ML 1 ML CARPUJECT IV ONE (06:00)
[2017-09-11 06:34] LABS: Hematocrit 35 % (35-47); Hemoglobin 11.6 g/dl (12.0-16.0); Mean Corpuscular HGB Conc 33 g/dl (31-36); Mean Corpuscular Hemoglobin 29 pg (27-31); Mean Corpuscular Volume 87 fL (80-97); Mean Platelet Volume 7 um3 (7.4-10.4); Platelet Count 522 10^3/ul (150-450); Red Blood Count 4.07 10^6/ul (4.0-5.4); Red Cell Distribution Width 15 % (10.5-15); White Blood Count 24.8 10^3/ul (3.5-10.8)
[2017-09-11 06:47] LABS: EGFR Non-African American 133.1 (>60)
[2017-09-11] MEDS ORDERED: Potassium Chlor TAB* 20 MEQ TAB.ER PO ONE (07:02)
[2017-09-11 07:14] LABS: ABS Basophils 0.1 10^3/ul (0-0.2); ABS Eosinophils 0.1 10^3/ul (0-0.6); ABS Lymphocytes 1.8 10^3/ul (1.0-4.8); ABS Monocytes 1.2 10^3/ul (0-0.8); ABS Neutrophils 21.5 10^3/ul (1.5-7.7); ABS Nucleated RBC 0 10^3/ul; Eosinophil % 0.6 % (0-6); Lymphocyte % 7.4 % (25-47); Nucleated Red Blood Cells % 0
[2017-09-11] MEDS: BIOTIN 1 MG PO SCH (07:34)
[2017-09-11] MEDS: IRON 27 MG PO SCH (07:35)
[2017-09-11] MEDS: Cyanocobalamin TAB* 500 MCG PO SCH (08:00)
[2017-09-11] MEDS: Cholecalciferol TAB* 1000 UNITS PO SCH (08:00)
[2017-09-11] MEDS: Omeprazole CAP* 20 MG PO SCH (08:00)
[2017-09-11] MEDS: Sulfamethox/Trimethoprim DS 800/160* TAB PO SCH (08:01)
[2017-09-11] MEDS: predniSONE TAB* 20 MG PO SCH (08:01)
[2017-09-11] MEDS: Sertraline* 100 MG TAB PO SCH ×2 (08:01→21:07)
--- NOTE | 2017-09-11 08:03 | RAD ---
INDICATION: Hypoxic. COMPARISON: Comparison is made with a prior chest x-ray study from September 19, 2017. TECHNIQUE: A portable view of the chest was obtained. FINDINGS: The heart is within normal limits in size. There are dense infiltrates present throughout the right lung and at the left lung base which have progressed from the prior study. IMPRESSION: BILATERAL INFILTRATES DEMONSTRATING INTERVAL PROGRESSION.
[2017-09-11] MEDS: Mometasone/Formoter 200/5 MDI INH SCH ×2 (08:08→19:39)
[2017-09-11] MEDS: Cefepime 2 GM in Dextrose(*) 2 GM/50 ML BAG IV SCH ×2 (12:02→23:59)
[2017-09-11] MEDS: Enoxaparin(*) 40 MG/0.4 ML SYR SUBCUT SCH (12:06)
[2017-09-11] MEDS: predniSONE TAB* 50 MG PO SCH (12:08)
--- NOTE | 2017-09-11 16:37 | PN ---
Subjective Date of Service: 09/11/17 Interval History: Events reviewed. Increasing SOB/WOB and hypoxia Seen this AM and transferred by this author to the ICU Seen later while on vapotherm and she was resting comfortably. Objective Active Medications: Acetaminophen (Tylenol Tab*) 650 mg PO Q4H PRN PRN Reason: FEVER/PAIN Albuterol (Ventolin Hfa Inhaler*) 2 puff INH Q4H PRN PRN Reason: SOB/WHEEZING Albuterol/Ipratropium (Duoneb (Albuterol 2.5 Mg/Ipratropium 0.5 Mg)) 1 neb INH Q6H PRN PRN Reason: SOB/WHEEZING Last Admin: 09/11/17 16:16 Dose: 1 neb Cholecalciferol (Vitamin D Tab*) 1,000 units PO DAILY [facility] Last Admin: 09/11/17 08:00 Dose: 1,000 units Cyanocobalamin (Vitamin B12 Tab*) 500 mcg PO DAILY [facility] Last Admin: 09/11/17 08:00 Dose: 500 mcg Doxycycline Hyclate (Vibramycin Cap(*)) 100 mg PO BID [facility] Enoxaparin Sodium (Lovenox(*)) 40 mg SUBCUT Q24H [facility] Last Admin: 09/11/17 12:06 Dose: 40 mg Vancomycin HCl 1,000 mg/ (Sodium Chloride) 250 mls @ 166.667 mls/hr IVPB Q8H [facility] Last Admin: 09/11/17 08:01 Dose: 166.667 mls/hr Cefepime HCl (Maxipime 2 Gm In Dextrose Duplex (*)) 2 gm in 50 mls @ 100 mls/ hr IV Q12H [facility] Last Admin: 09/11/17 12:02 Dose: 100 mls/hr Ibuprofen (Motrin Tab*) 600 mg PO Q6H PRN PRN Reason: PAIN Last Admin: 09/10/17 18:20 Dose: 600 mg Mometasone Furoate/Formoterol Fumar (Dulera 200/5 Mdi*) 2 puff INH BID [facility] Last Admin: 09/11/17 08:08 Dose: 2 puff Morphine Sulfate (Morphine Inj (Syringe)*) 2 mg IV Q4H PRN PRN Reason: PAIN Last Admin: 09/11/17 01:54 Dose: 2 mg Nf: (Biotin [Biotin] (1 Mg)) 1 mg PO DAILY [facility] Last Admin: 09/11/17 07:34 Dose: Not Given Nf: (Iron [Iron] 27 (Mg)) 27 mg PO DAILY [facility] Last Admin: 09/11/17 07:35 Dose: Not Given Omeprazole (Prilosec Cap*) 20 mg PO DAILY [facility] Last Admin: 09/11/17 08:00 Dose: 20 mg Ondansetron HCl (Zofran Inj*) 4 mg IV Q4H PRN PRN Reason: NAUSEA/VOMITING Last Admin: 09/09/17 11:44 Dose: 4 mg Pharmacy Consult (Vancomycin Per Pharmacy*) 1 note FOLLOW UP . PRN PRN Reason: PER PROTOCOL Pharmacy Profile Note (Vancomycin Trough Check) 1 note FOLLOW UP 1600 ONE Stop: 09/12/17 16:01 Prednisone (Deltasone Tab*) 50 mg PO DAILY [facility] Last Admin: 09/11/17 12:08 Dose: 50 mg Sertraline HCl (Zoloft*) 100 mg PO BID [facility] Last Admin: 09/11/17 08:01 Dose: 100 mg Vital Signs - 8 hr 09/11/17 09/11/17 09/11/17 09:07 09:08 09:15 Temperature Pulse Rate 118 114 121 Respiratory 17 Rate Blood Pressure 109/69 109/57 (mmHg) O2 Sat by Pulse 96 95 92 Oximetry 09/11/17 09/11/17 09/11/17 09:22 09:30 09:45 Temperature 100.2 F Pulse Rate 118 115 118 Respiratory 25 25 21 Rate Blood Pressure 109/57 106/63 119/65 (mmHg) O2 Sat by Pulse 94 94 96 Oximetry 09/11/17 09/11/17 09/11/17 10:00 10:15 10:31 Temperature Pulse Rate 110 116 116 Respiratory 23 24 24 Rate Blood Pressure 113/63 114/62 101/55 (mmHg) O2 Sat by Pulse 96 95 93 Oximetry 09/11/17 09/11/17 09/11/17 10:45 11:00 11:15 Temperature Pulse Rate 110 110 110 Respiratory 24 26 29 Rate Blood Pressure 114/63 113/62 101/64 (mmHg) O2 Sat by Pulse 95 95 94 Oximetry 09/11/17 09/11/17 09/11/17 11:29 11:30 11:45 Temperature 97.3 F Pulse Rate 108 98 Respiratory 30 29 20 Rate Blood Pressure 106/66 117/70 (mmHg) O2 Sat by Pulse 94 95 Oximetry 09/11/17 09/11/17 09/11/17 11:54 12:00 12:15 Temperature 97.9 F Pulse Rate 101 96 Respiratory 22 28 Rate Blood Pressure 114/68 118/65 (mmHg) O2 Sat by Pulse 92 94 Oximetry 09/11/17 09/11/17 09/11/17 12:45 13:00 13:01 Temperature Pulse Rate 97 100 107 Respiratory 23 24 20 Rate Blood Pressure 113/73 114/67 (mmHg) O2 Sat by Pulse 94 96 96 Oximetry 09/11/17 09/11/17 09/11/17 14:00 16:00 16:16 Temperature 98.4 F Pulse Rate 89 Respiratory 20 14 Rate Blood Pressure (mmHg) O2 Sat by Pulse 95 Oximetry Oxygen Devices in Use Now: High Flow Heated Nasal Cannula Appearance: NAD Eyes: No Scleral Icterus, PERRLA Ears/Nose/Mouth/Throat: Clear Oropharnyx, Mucous Membranes Moist Neck: NL Appearance and Movements; NL JVP, Trachea Midline Respiratory: Symmetrical Chest Expansion and Respiratory Effort, - - rales on right from base to apex on left at base Cardiovascular: RRR Abdominal: NL Sounds; No Tenderness; No Distention, No Hepatosplenomegaly Lymphatic: No Cervical Adenopathy Skin: No Rash or Ulcers Neurological: Alert and Oriented x 3 Result Diagrams: 09/11/17 06:20 09/11/17 06:20 Microbiology and Other Data: Microbiology 09/09/17 11:24 Legionella Urinary Antigen - Final Urine Negative Legionella Streptococcus pneumoniae Ag Screen - Final Negative S. pneumo Antigen Assess/Plan/Problems-Billing Assessment: 51 yo F p/w sepsis 2/2 PNA - Patient Problems (1) Pneumonia Comment: PNA after suspected influenza illness Gram + filamentous beading rods in sputum - NOT partially acid fast indicating less likely to be Nocardia. Bactrim stopped Change levaquin to cefepime and doxycycline per ID. Continue Vancomycin Start predisone (2) Sepsis Comment: PNA Levaquin and vanco -Abx as above ID for assistance HR now controlled. Hold additional fluids (3) COPD (chronic obstructive pulmonary disease) Comment: not in exacerbation c/w home inhalers (4) CHERELLE (obstructive sleep apnea) Comment: does not use CPAP (5) DVT prophylaxis Comment: lovenox
--- NOTE | 2017-09-11 20:44 | CONS ---
CONSULTATION REPORT: DATE OF CONSULTATION: 09/11/17 REQUESTING PHYSICIAN: Dr. Francisco. CONSULTING SERVICE: Infectious Disease. REASON FOR CONSULTATION: Hypoxemic respiratory failure and pneumonia. IMPRESSION: 1. About 10 days ago, had fever, myalgia, cough lasted a few days and resolved on its own. It sounds like an influenza illness and now 10 days later is here with a few days of cough, dyspnea, and fever. Chest x-ray on admission, , showed bilateral infiltrates and to my read, most prominent on the right and progressing on the film done today. She is on high flow oxygen. Usual organisms for post influenza pneumonia are Staph and Strep. She had a gram- positive beaded branching filamentous justen that was not partially acid-fast. That would be most consistent with Actinomyces on the gram stain that could be oral mg and I think less likely a pathogen. 2. PENICILLIN allergy, caused hives and respiratory issues. Overall, sounds like anaphylaxis. 3. Chronic obstructive pulmonary disease. 4. Acute hypoxemic respiratory failure. RECOMMENDATIONS: 1. Continue vancomycin, goal trough 10 to 15. We will add cefepime 2 g every 12 hours to cover pseudomonas given her COPD history and she had been on Levaquin first day here. 2. Prednisone 50 mg a day for community-acquired pneumonia with respiratory failure, 5-day course. 3. We will add doxycycline to cover atypical as well as Actinomyces. HISTORY OF PRESENT ILLNESS: This is a 51-year-old woman with COPD and PENICILLIN allergy admitted with respiratory failure. End of July, she had fever, chills, malaise, cough, diagnosis of bronchitis. I am not sure if she had flu test at Urgent Care. She eventually improved but then a week later developed cough, fever, chills, malaise, shortness of breath. It was progressive. She was seen by her primary provider a couple of times, started on Levaquin and prednisone. Despite those things, kept getting worse. She came to the hospital on 09/09/17. X-ray with results as above. Her white count was 40,000. Today, it is down to 25,000. She has been on vancomycin, Levaquin, and Bactrim. Her blood cultures are negative. Sputum, Gram stain showed gram-positive rods, which are filamentous beading rods. Partial acid- fast negative. Gram-positive cocci, gram-negative cocci and bacilli, the culture is pending. She has had no fever. Influenza PCR is negative. Chest x- ray shows progression of the infiltrates today. Overnight, she had a coughing spell and became more short of breath. She is on high flow oxygen as of this morning and feels more comfortable. PAST MEDICAL HISTORY: 1. COPD. 2. Obesity. 3. Obstructive sleep apnea, not treated. 4. Gastroesophageal reflux disease. 5. Status post cholecystectomy. 6. Status post . 7. Status post tubal ligation. 8. Status post total hysterectomy. 9. Status post umbilical hernia repair. 10. Status post gastric sleeve in March 2017. ALLERGIES: PENICILLIN caused swelling and hives. MEDICATIONS: 1. Tylenol. 2. Albuterol. 3. Cholecalciferol. 4. Vitamin B12. 5. Enoxaparin. 6. Ibuprofen. 7. Morphine. 8. Omeprazole. 9. Prednisone 20 mg a day. 10. Sertraline. 11. Vancomycin 1 g every 8 hours. SOCIAL HISTORY: She lives in [place] with a roommate. [facility] [place] [facility] FAMILY HISTORY: No recurrent infections or tuberculosis. REVIEW OF SYSTEMS: A 14-point review of systems was negative except as noted above. PHYSICAL EXAM: Vital Signs: Temperature 37.6, heart rate 110, respiratory rate 25, blood pressure 113/62, oxygen saturation 95% on 40 L, 100% FiO2. In general, she is awake, does not appear in distress. Neurologic: She is oriented x3. Follows all commands. Moves all extremities. HEENT: There is no conjunctival hemorrhage. Oropharynx without thrush. Neck is supple without mass. Lymph Nodes: There is no cervical, supraclavicular, inguinal, axillary, or epitrochlear lymphadenopathy. Heart is regular and tachycardic without murmurs. Lungs have decreased breath sounds at base. There is no wheeze or rale. Abdomen: Soft, nontender, nondistended. There are bowel sounds present. Skin: There is no rash or splinter hemorrhages. Musculoskeletal: There is no spine tenderness to palpation or joint synovitis. LABORATORY DATA: White blood cell count 25, hemoglobin 11.6, platelets 522. Creatinine is 0.5. CRP was 400. Troponin 0.04. Influenza PCR negative. Urinalysis showed ketones and urobilinogen. Please see impressions and recommendations outlined above, which I have discussed with Dr. Francisco. Thank you for asking me to see Ms. Knapp in consultation. [id number]/[facility] #: [id number] ELIZABETH
[2017-09-11] MEDS: DOXYcycline CAP(*) 100 MG PO SCH (21:07)
[2017-09-12] MEDS: Vancomycin(*) 1,000 MG in NS 0.9% 250 ML* 250 ML IVPB SCH ×3 (00:47→16:47)
[2017-09-12 05:46] LABS: Hematocrit 33 % (35-47); Hemoglobin 11.2 g/dl (12.0-16.0); Mean Corpuscular HGB Conc 34 g/dl (31-36); Mean Corpuscular Hemoglobin 29 pg (27-31); Mean Corpuscular Volume 86 fL (80-97); Mean Platelet Volume 7 um3 (7.4-10.4); Platelet Count 508 10^3/ul (150-450); Red Cell Distribution Width 15 % (10.5-15); White Blood Count 20.9 10^3/ul (3.5-10.8)
[2017-09-12 06:01] LABS: EGFR Non-African American 143.2 (>60)
[2017-09-12 06:19] LABS: ABS Basophils 0 10^3/ul (0-0.2); ABS Eosinophils 0.1 10^3/ul (0-0.6); ABS Lymphocytes 2.5 10^3/ul (1.0-4.8); ABS Monocytes 1.1 10^3/ul (0-0.8); ABS Neutrophils 17.1 10^3/ul (1.5-7.7); ABS Nucleated RBC 0 10^3/ul; Eosinophil % 0.6 % (0-6); Lymphocyte % 12.2 % (25-47); Nucleated Red Blood Cells % 0
[2017-09-12] MEDS: Sertraline* 100 MG TAB PO SCH ×2 (07:54→21:41)
[2017-09-12] MEDS: DOXYcycline CAP(*) 100 MG PO SCH ×2 (07:54→21:41)
[2017-09-12] MEDS: predniSONE TAB* 50 MG PO SCH (07:54)
[2017-09-12] MEDS: Omeprazole CAP* 20 MG PO SCH (07:54)
[2017-09-12] MEDS: Cyanocobalamin TAB* 500 MCG PO SCH (07:54)
[2017-09-12] MEDS: Cholecalciferol TAB* 1000 UNITS PO SCH (07:54)
--- NOTE | 2017-09-12 08:29 | PN ---
Subjective Date of Service: 09/12/17 Interval History: Patient seen and examined at bedside. She reports feeling more comfortable on Vapotherm and states that she has been coughing up more sputum. Still c/o of "intense coughing" and body aches from her coughing. Denies fever/chills, increased SOB, abd pain, n/v, dysuria. No other acute concerns expressed at this time. Tele: SR 90s Family History: Unchanged from Admission Social History: Unchanged from Admission Past Medical History: Unchanged from Admission Objective Active Medications: Acetaminophen (Tylenol Tab*) 650 mg PO Q4H PRN PRN Reason: FEVER/PAIN Albuterol (Ventolin Hfa Inhaler*) 2 puff INH Q4H PRN PRN Reason: SOB/WHEEZING Albuterol/Ipratropium (Duoneb (Albuterol 2.5 Mg/Ipratropium 0.5 Mg)) 1 neb INH Q6H PRN PRN Reason: SOB/WHEEZING Last Admin: 09/11/17 16:16 Dose: 1 neb Cholecalciferol (Vitamin D Tab*) 1,000 units PO DAILY [facility] Last Admin: 09/12/17 07:54 Dose: 1,000 units Cyanocobalamin (Vitamin B12 Tab*) 500 mcg PO DAILY [facility] Last Admin: 09/12/17 07:54 Dose: 500 mcg Doxycycline Hyclate (Vibramycin Cap(*)) 100 mg PO BID [facility] Last Admin: 09/12/17 07:54 Dose: 100 mg Enoxaparin Sodium (Lovenox(*)) 40 mg SUBCUT Q24H [facility] Last Admin: 09/11/17 12:06 Dose: 40 mg Vancomycin HCl 1,000 mg/ (Sodium Chloride) 250 mls @ 166.667 mls/hr IVPB Q8H [facility] Last Admin: 09/12/17 07:54 Dose: 166.667 mls/hr Cefepime HCl (Maxipime 2 Gm In Dextrose Duplex (*)) 2 gm in 50 mls @ 100 mls/ hr IV Q12H [facility] Last Admin: 09/11/17 23:59 Dose: 100 mls/hr Ibuprofen (Motrin Tab*) 600 mg PO Q6H PRN PRN Reason: PAIN Last Admin: 09/10/17 18:20 Dose: 600 mg Mometasone Furoate/Formoterol Fumar (Dulera 200/5 Mdi*) 2 puff INH BID [facility] Last Admin: 09/11/17 19:39 Dose: 2 puff Morphine Sulfate (Morphine Inj (Syringe)*) 2 mg IV Q4H PRN PRN Reason: PAIN Last Admin: 09/11/17 01:54 Dose: 2 mg Nf: (Biotin [Biotin] (1 Mg)) 1 mg PO DAILY [facility] Last Admin: 09/11/17 07:34 Dose: Not Given Nf: (Iron [Iron] 27 (Mg)) 27 mg PO DAILY [facility] Last Admin: 09/11/17 07:35 Dose: Not Given Omeprazole (Prilosec Cap*) 20 mg PO DAILY [facility] Last Admin: 09/12/17 07:54 Dose: 20 mg Ondansetron HCl (Zofran Inj*) 4 mg IV Q4H PRN PRN Reason: NAUSEA/VOMITING Last Admin: 09/09/17 11:44 Dose: 4 mg Pharmacy Consult (Vancomycin Per Pharmacy*) 1 note FOLLOW UP . PRN PRN Reason: PER PROTOCOL Pharmacy Profile Note (Vancomycin Trough Check) 1 note FOLLOW UP 1600 ONE Stop: 09/12/17 16:01 Prednisone (Deltasone Tab*) 50 mg PO DAILY [facility] Last Admin: 09/12/17 07:54 Dose: 50 mg Sertraline HCl (Zoloft*) 100 mg PO BID [facility] Last Admin: 09/12/17 07:54 Dose: 100 mg Vital Signs - 8 hr 09/12/17 09/12/17 09/12/17 01:00 02:00 03:00 Temperature Pulse Rate 85 90 78 Respiratory 18 23 20 Rate Blood Pressure 133/79 127/71 133/69 (mmHg) O2 Sat by Pulse 98 97 97 Oximetry 09/12/17 09/12/17 09/12/17 04:00 04:02 05:00 Temperature 97.5 F Pulse Rate 100 106 75 Respiratory 17 29 20 Rate Blood Pressure 130/70 (mmHg) O2 Sat by Pulse 92 87 Oximetry 09/12/17 09/12/17 09/12/17 06:00 07:00 07:46 Temperature 97.5 F Pulse Rate 78 80 Respiratory 19 22 Rate Blood Pressure 122/69 111/56 (mmHg) O2 Sat by Pulse 98 97 Oximetry Oxygen Devices in Use Now: High Flow Heated Nasal Cannula - 20 LPM, 100% FiO2 Appearance: Middle aged female, lying in bed, NAD Eyes: No Scleral Icterus, PERRLA Ears/Nose/Mouth/Throat: Clear Oropharnyx, Mucous Membranes Moist Neck: NL Appearance and Movements; NL JVP Respiratory: Symmetrical Chest Expansion and Respiratory Effort, - - fair aeration throughout, decreased breath sounds in the bases Cardiovascular: NL Sounds; No Murmurs; No JVD, RRR Abdominal: NL Sounds; No Tenderness; No Distention Extremities: No Edema, No Clubbing, Cyanosis Skin: No Rash or Ulcers Neurological: Alert and Oriented x 3, NL Muscle Strength and Tone Lines/Tubes/Other Access: Clean, Dry and Intact Peripheral IV Nutrition: Taking PO's Result Diagrams: 09/12/17 05:34 09/12/17 06:05 Microbiology and Other Data: Microbiology 09/09/17 11:24 Legionella Urinary Antigen - Final Urine Negative Legionella Streptococcus pneumoniae Ag Screen - Final Negative S. pneumo Antigen Assess/Plan/Problems-Billing Assessment: Ms. Knapp is a 51 yo female with a PMH significant for COPD, obesity, CHERELLE, GERD, and recent gastric sleeve (03/2017) who presented to the ED on 09/09/17 with shortness of breath that is secondary to post-influenza bilateral pneumonia and now with acute hypoxic respiratory failure requiring vapotherm. - Patient Problems (1) Pneumonia Code(s): J18.9 - PNEUMONIA, UNSPECIFIED ORGANISM Comment: With bilateral PNA after suspected influenza illness Gram + filamentous beading rods in sputum - NOT partially acid fast indicating less likely to be Nocardia. Continue vancomycin, cefepime, doxycycline. Appreicate ID input. (2) Acute respiratory failure with hypoxia Code(s): J96.01 - ACUTE RESPIRATORY FAILURE WITH HYPOXIA Comment: Requiring vapotherm, showing improvement in respiratory status. Continue prednisone 50 mg daily x 5 days for CAP with respiratory failure. (3) Sepsis Current Visit: Yes Status: Acute Comment: Meets sepsis criteria on admission by SOFA criteria with increased RR, low SBP, low MAP. Meets sepsis criteria on admission by SIRS criteria with leukocytosis, hypoxia, tachypnea, hypotension. Source of infection is bilateral community acquired pneumonia ID following - continue vancomycin, cefepime, doxycycline. (4) COPD (chronic obstructive pulmonary disease) Code(s): J44.9 - CHRONIC OBSTRUCTIVE PULMONARY DISEASE, UNSPECIFIED Comment: Does not appear to be in acute exacerbation Continue home inhalers. (5) CHERELLE (obstructive sleep apnea) Code(s): G47.33 - OBSTRUCTIVE SLEEP APNEA (ADULT) (PEDIATRIC) Comment: Does not use CPAP. (6) DVT prophylaxis Comment: SQ Lovenox Status and Disposition: Inpatient admission. Extended LOS due to severity of illness, requiring rescue Vapotherm and IV antibiotics.
[2017-09-12] MEDS: IRON 27 MG PO SCH (10:36)
[2017-09-12] MEDS: BIOTIN 1 MG PO SCH (10:37)
[2017-09-12] MEDS: Mometasone/Formoter 200/5 MDI INH SCH ×2 (10:44→20:18)
[2017-09-12] MEDS: Cefepime 2 GM in Dextrose(*) 2 GM/50 ML BAG IV SCH ×2 (12:13→23:41)
[2017-09-12] MEDS: Enoxaparin(*) 40 MG/0.4 ML SYR SUBCUT SCH (12:14)
[2017-09-12] MEDS ORDERED: Potassium Chlor TAB* 20 MEQ TAB.ER PO ONE (14:21)
[2017-09-12] MEDS ORDERED: Vancomycin Trough Check NOTE FOLLOW UP ONE (16:00)
[2017-09-12] MEDS: Potassium Chlor TAB* 10 MEQ TAB.ER PO SCH (21:41)
[2017-09-13] MEDS: Vancomycin(*) 1,000 MG in NS 0.9% 250 ML* 250 ML IVPB SCH ×3 (00:19→16:55)
[2017-09-13 05:31] LABS: Hematocrit 34 % (35-47); Hemoglobin 11.1 g/dl (12.0-16.0); Mean Corpuscular HGB Conc 33 g/dl (31-36); Mean Corpuscular Hemoglobin 29 pg (27-31); Mean Corpuscular Volume 87 fL (80-97); Mean Platelet Volume 7 um3 (7.4-10.4); Platelet Count 493 10^3/ul (150-450); Red Blood Count 3.87 10^6/ul (4.0-5.4); Red Cell Distribution Width 15 % (10.5-15); White Blood Count 18.3 10^3/ul (3.5-10.8)
[2017-09-13 05:41] LABS: EGFR Non-African American 146.9 (>60)
[2017-09-13 06:24] LABS: ABS Basophils 0 10^3/ul (0-0.2); ABS Eosinophils 0.3 10^3/ul (0-0.6); ABS Lymphocytes 3.2 10^3/ul (1.0-4.8); ABS Monocytes 1.2 10^3/ul (0-0.8); ABS Neutrophils 13.6 10^3/ul (1.5-7.7); ABS Nucleated RBC 0 10^3/ul; Eosinophil % 1.5 % (0-6); Lymphocyte % 17.4 % (25-47); Nucleated Red Blood Cells % 0
[2017-09-13] MEDS: Ibuprofen TAB* 600 MG PO PRN (06:42)
--- NOTE | 2017-09-13 07:28 | PN ---
Subjective Date of Service: 09/13/17 Interval History: Ms. Knapp states that she is feeling much better today. She reports decreased SOB and cough. She is tolerating oral intake well. Family History: Unchanged from Admission Social History: Unchanged from Admission Past Medical History: Unchanged from Admission Objective Active Medications: Acetaminophen (Tylenol Tab*) 650 mg PO Q4H PRN Albuterol (Ventolin Hfa Inhaler*) 2 puff INH Q4H PRN Albuterol/Ipratropium (Duoneb (Albuterol 2.5 Mg/Ipratropium 0.5 Mg)) 1 neb INH Q6H PRN Cholecalciferol (Vitamin D Tab*) 1,000 units PO DAILY JONAS Cyanocobalamin (Vitamin B12 Tab*) 500 mcg PO DAILY JONAS Doxycycline Hyclate (Vibramycin Cap(*)) 100 mg PO BID JONAS Enoxaparin Sodium (Lovenox(*)) 40 mg SUBCUT Q24H JONAS Vancomycin HCl 1,000 mg/ (Sodium Chloride) 250 mls @ 166.667 mls/hr IVPB Q8H JONAS Cefepime HCl (Maxipime 2 Gm In Dextrose Duplex (*)) 2 gm in 50 mls @ 100 mls/ hr IV Q12H JONAS Ibuprofen (Motrin Tab*) 600 mg PO Q6H PRN Mometasone Furoate/Formoterol Fumar (Dulera 200/5 Mdi*) 2 puff INH BID JONAS Morphine Sulfate (Morphine Inj (Syringe)*) 2 mg IV Q4H PRN Pto: (Iron [Iron] 27 (Mg)) 27 mg PO DAILY JONAS Pto: (Biotin [Biotin (] 10,000 Mcg)) 0 mg PO DAILY JONAS Omeprazole (Prilosec Cap*) 20 mg PO DAILY JONAS Ondansetron HCl (Zofran Inj*) 4 mg IV Q4H PRN Pharmacy Consult (Vancomycin Per Pharmacy*) 1 note FOLLOW UP . PRN Potassium Chloride (Klor Con Er Tab*) 10 meq PO BID JONAS Prednisone (Deltasone Tab*) 50 mg PO DAILY JONAS Sertraline HCl (Zoloft*) 100 mg PO BID JONAS Vital Signs: Temp Pulse Resp BP Pulse Ox 97.8 F 79 23 125/71 97 09/13/17 04:00 09/13/17 06:00 09/13/17 06:00 09/13/17 06:00 09/13/17 06:00 Oxygen Devices in Use Now: Nasal Cannula Appearance: Female sitting up in bed in NAD Eyes: No Scleral Icterus Ears/Nose/Mouth/Throat: Mucous Membranes Moist Neck: Trachea Midline Respiratory: Symmetrical Chest Expansion and Respiratory Effort, - - Minimal wheezing in right upper lobe Cardiovascular: NL Sounds; No Murmurs; No JVD Abdominal: NL Sounds; No Tenderness; No Distention Lymphatic: No Cervical Adenopathy Extremities: No Edema Skin: No Rash or Ulcers Neurological: Alert and Oriented x 3, NL Muscle Strength and Tone Nutrition: Taking PO's Result Diagrams: 09/13/17 05:12 09/13/17 05:15 Microbiology and Other Data: . Assess/Plan/Problems-Billing Assessment: Ms. Knapp is a 51 yo female with a PMH significant for COPD, obesity, CHERELLE, GERD, and recent gastric sleeve (03/2017) who presented to the ED on 09/09/17 with shortness of breath that is secondary to post-influenza bilateral pneumonia and now with acute hypoxic respiratory failure requiring vapotherm. - Patient Problems (1) Acute respiratory failure with hypoxia Comment: - Slow improvement, remains on vapotherm. - Continue to wean as tolerated. (2) CHERELLE (obstructive sleep apnea) Current Visit: Yes Status: Acute Code(s): G47.33 - OBSTRUCTIVE SLEEP APNEA ( ADULT) (PEDIATRIC) SNOMED Code(s): 38504040 Comment: Does not use CPAP. (3) Pneumonia Comment: - Slowly improving. - With bilateral PNA after suspected influenza illness - Gram + filamentous beading rods in sputum - NOT partially acid fast indicating less likely to be Nocardia. - Appreciate ID input. Continue vancomycin, cefepime, doxycycline. (4) Sepsis Comment: - Resolving. - Sepsis present on arrival. Met by SOFA criteria with increased RR, low SBP, low MAP. Met by SIRS criteria with leukocytosis, hypoxia, tachypnea, hypotension. - Source of infection is bilateral community acquired pneumonia ID following - continue vancomycin, cefepime, doxycycline. (5) COPD (chronic obstructive pulmonary disease) Comment: - Does not appear to be in acute exacerbation. - Continue prednisone for resp failure with CAP. - Continue home inhalers. (6) DVT prophylaxis Comment: - SQ Lovenox Status and Disposition: Inpatient admission. Anticipate discharge to home when medically stable.
[2017-09-13] MEDS: DOXYcycline CAP(*) 100 MG PO SCH ×2 (08:08→21:50)
[2017-09-13] MEDS: Cholecalciferol TAB* 1000 UNITS PO SCH (08:09)
[2017-09-13] MEDS: Potassium Chlor TAB* 10 MEQ TAB.ER PO SCH ×2 (08:09→21:50)
[2017-09-13] MEDS: Sertraline* 100 MG TAB PO SCH ×2 (08:09→21:50)
[2017-09-13] MEDS: BIOTIN 10000 MCG PO SCH (08:09)
[2017-09-13] MEDS: Omeprazole CAP* 20 MG PO SCH (08:09)
[2017-09-13] MEDS: Cyanocobalamin TAB* 500 MCG PO SCH (08:09)
[2017-09-13] MEDS: IRON 27 MG PO SCH (08:10)
[2017-09-13] MEDS: Mometasone/Formoter 200/5 MDI INH SCH ×2 (08:14→22:17)
[2017-09-13] MEDS: predniSONE TAB* 50 MG PO SCH (08:46)
[2017-09-13] MEDS: Enoxaparin(*) 40 MG/0.4 ML SYR SUBCUT SCH (12:00)
[2017-09-13] MEDS: Cefepime 2 GM in Dextrose(*) 2 GM/50 ML BAG IV SCH (12:02)
[2017-09-14] MEDS: Cefepime 2 GM in Dextrose(*) 2 GM/50 ML BAG IV SCH ×3 (01:39→23:58)
[2017-09-14] MEDS: Vancomycin(*) 1,000 MG in NS 0.9% 250 ML* 250 ML IVPB SCH ×3 (02:16→16:53)
[2017-09-14] MEDS: Ibuprofen TAB* 600 MG PO PRN (04:03)
[2017-09-14] MEDS: Mometasone/Formoter 200/5 MDI INH SCH ×2 (08:34→20:06)
[2017-09-14] MEDS: Sertraline* 100 MG TAB PO SCH ×2 (08:35→20:35)
[2017-09-14] MEDS: predniSONE TAB* 50 MG PO SCH (08:35)
[2017-09-14] MEDS: Cholecalciferol TAB* 1000 UNITS PO SCH (08:35)
[2017-09-14] MEDS: Omeprazole CAP* 20 MG PO SCH (08:35)
[2017-09-14] MEDS: Cyanocobalamin TAB* 500 MCG PO SCH (08:35)
[2017-09-14] MEDS: Potassium Chlor TAB* 10 MEQ TAB.ER PO SCH ×2 (08:35→20:35)
[2017-09-14] MEDS: DOXYcycline CAP(*) 100 MG PO SCH ×2 (08:35→20:35)
[2017-09-14] MEDS: BIOTIN 10000 MCG PO SCH (08:36)
[2017-09-14] MEDS: IRON 27 MG PO SCH (08:36)
--- NOTE | 2017-09-14 09:35 | PN ---
Subjective Date of Service: 09/14/17 Interval History: Ms. Knapp reports feeling much better today. She reports decreased cough and SOB and has been up ambulating in her room without significant dyspnea on 5L NC. Family History: Unchanged from Admission Social History: Unchanged from Admission Past Medical History: Unchanged from Admission Objective Active Medications: Acetaminophen (Tylenol Tab*) 650 mg PO Q4H PRN Albuterol (Ventolin Hfa Inhaler*) 2 puff INH Q4H PRN Albuterol/Ipratropium (Duoneb (Albuterol 2.5 Mg/Ipratropium 0.5 Mg)) 1 neb INH Q6H PRN Cholecalciferol (Vitamin D Tab*) 1,000 units PO DAILY JONAS Cyanocobalamin (Vitamin B12 Tab*) 500 mcg PO DAILY JONAS Doxycycline Hyclate (Vibramycin Cap(*)) 100 mg PO BID JONAS Enoxaparin Sodium (Lovenox(*)) 40 mg SUBCUT Q24H JONAS Vancomycin HCl 1,000 mg/ (Sodium Chloride) 250 mls @ 166.667 mls/hr IVPB Q8H JONAS Cefepime HCl (Maxipime 2 Gm In Dextrose Duplex (*)) 2 gm in 50 mls @ 100 mls/ hr IV Q12H JONAS Ibuprofen (Motrin Tab*) 600 mg PO Q6H PRN Mometasone Furoate/Formoterol Fumar (Dulera 200/5 Mdi*) 2 puff INH BID JONAS Morphine Sulfate (Morphine Inj (Syringe)*) 2 mg IV Q4H PRN Pto: (Iron [Iron] 27 (Mg)) 27 mg PO DAILY [facility] Pto: (Biotin [Biotin (] 10,000 Mcg)) 0 mg PO DAILY JONAS Omeprazole (Prilosec Cap*) 20 mg PO DAILY JONAS Ondansetron HCl (Zofran Inj*) 4 mg IV Q4H PRN Pharmacy Consult (Vancomycin Per Pharmacy*) 1 note FOLLOW UP . PRN Potassium Chloride (Klor Con Er Tab*) 10 meq PO BID JONAS Prednisone (Deltasone Tab*) 50 mg PO DAILY JONAS Sertraline HCl (Zoloft*) 100 mg PO BID JONAS Vital Signs: Temp Pulse Resp BP Pulse Ox 98.0 F 83 18 127/67 99 09/14/17 07:38 09/14/17 07:38 09/14/17 08:18 09/14/17 07:38 09/14/17 07:38 Oxygen Devices in Use Now: Nasal Cannula Appearance: Female sitting up in bed in NAD Eyes: No Scleral Icterus Ears/Nose/Mouth/Throat: Mucous Membranes Moist Neck: Trachea Midline Respiratory: Symmetrical Chest Expansion and Respiratory Effort, Clear to Auscultation Cardiovascular: NL Sounds; No Murmurs; No JVD, No Edema Abdominal: NL Sounds; No Tenderness; No Distention Lymphatic: No Cervical Adenopathy Extremities: No Edema Skin: No Rash or Ulcers Neurological: Alert and Oriented x 3, NL Muscle Strength and Tone Nutrition: Taking PO's Result Diagrams: 09/13/17 05:12 09/13/17 05:15 Microbiology and Other Data: . Assess/Plan/Problems-Billing Assessment: Ms. Knapp is a 51 yo female with a PMH significant for COPD, obesity, CHERELLE, GERD, and recent gastric sleeve (03/2017) who presented to the ED on 09/09/17 with shortness of breath that is secondary to post-influenza bilateral pneumonia and now with acute hypoxic respiratory failure requiring vapotherm. - Patient Problems (1) Acute respiratory failure with hypoxia Comment: - Continued improvement, now on 4L NC. - Continue to wean as tolerated. - Start prednison taper. (2) Sepsis Comment: - Resolved. - Sepsis present on arrival. Met by SOFA criteria with increased RR, low SBP, low MAP. Met by SIRS criteria with leukocytosis, hypoxia, tachypnea, hypotension. - Source of infection is bilateral community acquired pneumonia ID following - continue vancomycin, cefepime, doxycycline. (3) Pneumonia Comment: - Slowly improving. - With bilateral PNA after suspected influenza illness - Gram + filamentous beading rods in sputum - not partially acid fast, specimen being sent to [facility]. - Appreciate ID input. Continue vancomycin, cefepime, doxycycline. (4) CHERELLE (obstructive sleep apnea) Current Visit: Yes Status: Acute Code(s): G47.33 - OBSTRUCTIVE SLEEP APNEA ( ADULT) (PEDIATRIC) SNOMED Code(s): 17776990 Comment: Does not use CPAP. (5) COPD (chronic obstructive pulmonary disease) Comment: - Does not appear to be in acute exacerbation. - Start prednisone for resp failure with CAP. - Continue home inhalers. (6) DVT prophylaxis Comment: - SQ Lovenox Status and Disposition: Inpatient admission. Anticipate discharge to home when medically stable.
[2017-09-14] MEDS: Enoxaparin(*) 40 MG/0.4 ML SYR SUBCUT SCH (12:41)
[2017-09-15] MEDS: Vancomycin(*) 1,000 MG in NS 0.9% 250 ML* 250 ML IVPB SCH (00:28)
[2017-09-15] MEDS: BIOTIN 10000 MCG PO SCH (08:09)
[2017-09-15] MEDS: IRON 27 MG PO SCH (08:09)
[2017-09-15] MEDS: Cholecalciferol TAB* 1000 UNITS PO SCH (08:12)
[2017-09-15] MEDS: Omeprazole CAP* 20 MG PO SCH (08:13)
[2017-09-15] MEDS: Sertraline* 100 MG TAB PO SCH (08:13)
[2017-09-15] MEDS: Potassium Chlor TAB* 10 MEQ TAB.ER PO SCH (08:13)
[2017-09-15] MEDS: DOXYcycline CAP(*) 100 MG PO SCH (08:13)
[2017-09-15] MEDS: Cyanocobalamin TAB* 500 MCG PO SCH (08:13)
[2017-09-15] MEDS ORDERED: predniSONE TAB* 50 MG PO SCH (09:00)
[2017-09-15] MEDS: Mometasone/Formoter 200/5 MDI INH SCH (09:16)
[2017-09-15] MEDS ORDERED: predniSONE TAB* 20 MG PO SCH (09:26)
[2017-09-15] MEDS ORDERED: Vancomycin(*) 1,000 MG in NS 0.9% 250 ML* 250 ML IVPB SCH (10:00)
[2017-09-15] MEDS: Cefepime 2 GM in Dextrose(*) 2 GM/50 ML BAG IV SCH (12:33)
[2017-09-15] MEDS: Enoxaparin(*) 40 MG/0.4 ML SYR SUBCUT SCH (12:33)
[2017-09-15 16:07] VITALS: BP 123/58
[2017-09-17] MEDS ORDERED: Vancomycin Trough Check NOTE FOLLOW UP ONE (10:00)
--- NOTE | 2017-09-17 15:19 | DS ---
CC: Dr. Gordo Martin; Dr. Yifan Parisi DISCHARGE SUMMARY: DATE OF ADMISSION: 09/09/17 DATE OF DISCHARGE: 09/15/17 MY ATTENDING WHILE IN THE HOSPITAL: Dr. Gordo Martin PRIMARY CARE PROVIDER: Dr. Yifan Parisi CONSULTING PROVIDER: Dr. Adrian Campa of Infectious Disease. PRIMARY DISCHARGE DIAGNOSES: 1. Bilateral pneumonia, unknown organism. 2. Acute respiratory failure. 3. Hypoxic respiratory failure. SECONDARY DISCHARGE DIAGNOSES: 1. Obesity. 2. Obstructive sleep apnea. 3. Gastroesophageal reflux disease. 4. Chronic obstructive pulmonary disease. 5. Cholecystectomy. 6. . 7. Tubal ligation. 8. Hysterectomy. 9. Umbilical hernia repair. 10. Laparoscopic gastric sleeve. 11. History of hypertension. STUDIES DONE WHILE IN THE HOSPITAL: Chest x-ray from 09/09/17, read as bilateral infiltrates most co nsistent with pneumonia. Recommend followup chest x-rays to resolution. Electrocardiogram from 09/09/17, read as sinus tachycardia. No ST segment changes. Normal axis. No blocks or hypertrophy. No other abnormalities. QTc of 439. EKG from 07/11/18 shows sinus tachycardia. No significant changes. Chest x-ray from 09/11/17 shows bilateral infiltrates demonstrating interval progression. MEDICATIONS AT DISCHARGE: 1. Advair Diskus 250/50, one puff inhalation b.i.d. 2. Omeprazole 20 mg p.o. daily. 3. Sertraline 100 mg p.o. b.i.d. 4. DuoNeb 1 nebulizer q. 6 hours as needed. 5. Albuterol inhaler one puff inhalation q. 4 hours as needed. 6. Iron 27 mg p.o. daily. 7. Vitamin B12, 100 mcg p.o. daily. 8. Vitamin D 1000 units p.o. daily. 9. Biotin 1 mg p.o. daily. 10. Tylenol 650 mg p.o. q. 4 hours as needed. 11. Ciprofloxacin 750 mg p.o. b.i.d. x11. 12. Doxycycline 100 mg p.o. b.i.d. x11. 13. Ibuprofen 650 mg p.o. q. 6 hours as needed. New medications at discharge: 1. Tylenol. 2. Ibuprofen. 3. Ciprofloxacin. 4. Doxycycline. Medications discontinued at discharge: 1. Prednisone. 2. Levofloxacin. HOSPITAL COURSE: This is a brief summary of the patient's presentation. For more details, please se e the history and physical from Dr. Rigoberto Francisco on 09/09/17. In brief, the patient is a 20-year-ol d female with past medical history significant for the above, who developed cough and fever early in the month of August, was prescribed azithromycin and prednisone at [facility]. The patient did not feel any better, had continued cough, fatigue and was started on Levaquin two days prior to her prese ntation. The patient decreased on her own Levaquin to 10 mg because it made her feel jittery. The p atient had a max fever of 109, which was not reproduced in the hospital. The patient presented to ED . The patient's friend Jose, whom she lives with, had confirmed flu before her falling ill. The pat ient had one episode of diarrhea. The patient had increased shortness of breath and pain all over du e to her fibromyalgia. The patient's breathing felt labored and the patient was admitted to the hosp ital for sepsis, hypoxic respiratory failure in the setting of pneumonia. She failed Levaquin treatm ent. She was started on vancomycin and Levaquin was continued. Strep pneumo and Legionella antigens were continued. The patient's other old medications were kept the same. The patient felt much bett er after one day of antibiotics. The patient's pain was improved. The patient had gram-positive davy mentous beadings rods on sputum. The patient was started on Bactrim in addition to her Levaquin and vancomycin. Infectious Disease consult was obtained. Overnight, on 09/11/17, the patient had increa sed work of breathing and hypoxia. The patient was on 6 L and became extremely short of breath. The patient was given Lasix and had worsening lung exam. The patient was transferred to the ICU for Vap otherm to decrease her work of breathing. The patient was started on prednisone for 5 days. Infecti ous Disease grew a suspicion that this was nocardia infection, but partial acid-fast staining was neg ative. The patient was started on doxycycline and was started on cefepime. The patient on this anti biotic regimen improved, but had to stay in the intensive care unit for Vapotherm treatment. The pat ient on 09/13/17 had decreased shortness of breath and cough but was still unable to be weaned off of Vapotherm. The patient was able to be deescalated to the floor on 09/14/17 on 5 L nasal cannula, wh ich will be decreased to 4 later that day. The patient was continued on vancomycin, cefepime, and do xycycline during this time. The patient's vital signs stayed stable throughout her admission. The p atient continued to improve, was able to be down to 2 L of oxygen. Her oxygen saturation was 91% on room air at rest, but dropping to 86 with ambulation without corresponding drop while ambulating with oxygen. The patient states she felt much better and wanted to go home on oxygen. The patient state d she felt confident following her own oxygen saturation and weaning her oxygen as tolerated at home. Infectious Disease recommended a regimen of doxycycline and ciprofloxacin for 5 days after her disc harge. The patient was discharged home on these medications and 2 L of oxygen as needed. PHYSICAL EXAMINATION ON THE DAY OF DISCHARGE: General: The patient is a 51-year- old female who annalise ears stated age and sitting comfortably in bed, in no acute distress. HEENT: Head normocephalic, at raumatic. Sclerae anicteric. No conjunctival injection. Nasal mucosa moist. Oral mucosa moist. N o pharyngeal erythema, discharge, or exudates noted. Neck: Supple, nontender. No lymphadenopathy. No carotid bruit auscultated. Cardiac: Regular rate and rhythm. No clicks, murmurs, gallops, or ru bs. Pulses 2+ in bilateral dorsalis pedis, posterior tibialis, and radial areas. Respiratory: Darcie r to auscultation bilaterally. Diminished breath sounds throughout. No wheezes, rales, or rhonchi. Good air exchange bilaterally. Abdomen: Soft, nontender, nondistended. Bowel sounds present, normo active in all 4 quadrants. No hepatosplenomegaly. No abdominal bruits auscultated. Skin: Clean, d ry, and intact. No rash. Neuro: Cranial nerves II through XII intact. No focal deficits. Normal g ait. Psychiatric: Pleasant and cooperative. LABORATORY DATA ON THE DAY OF DISCHARGE: White blood count 18.3 , hemoglobin 11.1, platelet c ount 493. Sodium 140, potassium 3.2, anion gap 7, BUN 15, creatinine 0.45, glucose 79, calcium 8.8, magnesium 1.9. The patient's other laboratory data of note from admission, white blood cell count on admission 40, neutrophil percentage 91%. Potassium 3.4. Troponin-I 0.04. CRP is 399. AST 71, alk guilherme phosphatase 176. DISCHARGE PLAN: The patient will be discharged to home with close followup with her primary care pro vider. She will follow up on the results of the sputum culture that was sent to [facility] for iden tification to see if the antibiotics that she is on would be effective against this organism. Whatev er may it be, the patient should wean her oxygen as tolerated after purchasing her own pulse oximeter . This was discussed with the patient. The patient should continue her home COPD therapies and shou ld return to the hospital for any alarming symptoms such as severely increased shortness of breath or chest pain or fevers that cannot be controlled with medications, chills, or other alarming symptoms. The patient should take her antibiotics as prescribed. The patient should be referred to Infectiou s Disease based on the known natural history of infections for whatever organism it turns out she had in her lungs. The patient should engage in activity as tolerated and have a heart healthy diet with out caffeine. TIME SPENT: Approximately 60 minutes were spent on this discharge, 30 of which were spent face-to-fa ce with the patient, obtaining history and physical, and discussing treatment plan. BETY OCASIO [id number]/[facility] #: [id number]
== END 2017-09-15 16:00 | disposition home or self-care (01) | DRG 720 ==
LOC: ED 07:47 → MED 11:18 → ICU 09-11 08:08 → MED 09-13 15:20
PROVIDERS: ADMIT Internal Medicine; ATTEND Internal Medicine
PROC: 5A09457 Assistance with Respiratory Ventilation, 24-96 Consecutive Hours, Continuous Positive Airway Pressure (ICD-10-PCS; principal; 2017-09-11)
DX: A41.9 Sepsis, unspecified organism (principal); J96.01 Acute respiratory failure with hypoxia; J10.00 Influenza due to other identified influenza virus with unspecified type of pneumonia; Z68.41 Body mass index [BMI] 40.0-44.9, adult; G47.33 Obstructive sleep apnea (adult) (pediatric); J44.9 Chronic obstructive pulmonary disease, unspecified; K21.9 Gastro-esophageal reflux disease without esophagitis; E66.01 Morbid (severe) obesity due to excess calories; Z98.84 Bariatric surgery status; Z88.0 Allergy status to penicillin; Z79.52 Long term (current) use of systemic steroids; Z79.899 Other long term (current) drug therapy; Z83.3 Family history of diabetes mellitus; Z82.49 Family history of ischemic heart disease and other diseases of the circulatory system; Z87.891 Personal history of nicotine dependence
CPT/HCPCS: 36415; 71045; 71046; 80048; 80053; 80076; 80202; 81003; 82550; 83605; 83735; 84484; 85025; 86140; 87040; 87070; 87205; 87502; 87899; 93005; 94640; 94667; 94760; 99284; A9270-GY; J0692; J1650; J1940; J2270; J2405; J2930; J3370; J7512